=== PATIENT | female | born 1960 | race Caucasian/White ===

== ENCOUNTER 2016-04-05 02:15 | Inpatient (IN) | payer OTHER ==
[2016-04-05] VITALS (14 sets, daily range): BP systolic 108–131; BP diastolic 56–77; PULSE 81–109; TEMP 36.4–36.9; O2SAT 91–99; Ht 165.1 cm; Wt 98.2 kg
[~2016-04-05] VITALS: Ht 165.1 cm; Wt 98.2 kg
[2016-04-05] MEDS ORDERED: ALBUT/IPRATROP 3MG/0.5MG NEB 3 ML VIAL ONE (02:18)
--- NOTE | 2016-04-05 02:32 | EMERGENCY ROOM VISIT NOTE ---
History Report prepared by Klaudia: Flor Phan Under the Supervision of: Dr. Jorge Brunner M.D. First contact with patient: 02:17 Stated Complaint: RESPIRATORY DISTRESS History of Present Illness The patient is a 55 year old female who presents to the Emergency Room with complaints of persistent respiratory distress that began prior to arrival. Per EMS the patient was diagnosed with bronchitis recently was started on Azithromycin. EMS reports that the patient was statting 52% prior to arrival. They note that the patient was given three albuterol treatments prior to arrival and has been using a DuoNeb at home. The patient states that her legs have been swelling recently. She denies any history of heart problems. The patient states that she is currently not on any steroids. She notes that she is feeling better after the albuterol treatments and BiPAP. Source of History: patient, EMS Onset: prior to arrival Position: other (global) Quality: other (respiratory distress) Timing: other (persistent) Modifying Factors (Relieving): other (albuterol, BiPAP) Review of Systems See HPI for pertinent positives & negatives. A total of 10 systems reviewed and were otherwise negative. Past Medical & Surgical Medical Problems: (1) Bronchitis Family History No pertinent family history stated. Social History Marital Status: Occupation Status: unemployed Current/Historical Medications Scheduled Amlodipine (Norvasc), 10 MG PO DAILY Atorvastatin (Lipitor), 20 MG PO QPM Hydrochlorothiazide (Hctz), 25 MG PO DAILY Losartan Potassium (Cozaar), 50 MG PO DAILY Metoprolol Tartrate (Lopressor) (Lopressor), 50 MG PO BID Montelukast Sodium (Montelukast Sodium), 10 MG PO QPM Rivaroxaban (Xarelto), 20 MG PO DAILY Scheduled PRN Albuterol Hfa (Ventolin Hfa), 2 PUFFS INH Q4H PRN for Shortness of Breath Ipratropium-Albuterol (Duoneb), 3 ML INH Q4H PRN for SOB/Wheezing Allergies Coded Allergies: Adhesives (Verified Allergy, Intermediate, ERRYTHEMA, 04/05/16) Aspirin (Verified Allergy, Unknown, 04/05/16) Quinolones (Verified Allergy, Unknown, 04/05/16) Tetracyclines (Verified Allergy, Unknown, 04/05/16) Sulfamethoxazole w/Trimethoprim (Verified Adverse Reaction, Intermediate, N/V, 04/05/16) Uncoded Allergies: CIPRO, DOXYCYCLINE,ASPIRIN,IBUPROFEN (Allergy, Unknown, 05/07/02) DOXYCYCLINE HYCLATE (Generic Allergy) (Allergy, Unknown, Y, 04/05/16) IBUPROFEN (Generic Allergy) (Allergy, Unknown, Y, 04/05/16) STERIODS (Adverse Reaction, Intermediate, EDEMA, 04/05/16) Physical Exam Vital Signs Date Time Temp Pulse Resp B/P Pulse Ox O2 Delivery O2 Flow Rate FiO2 04/05/16 02:49 100 99 100 04/05/16 02:47 100 34 99 BiPAP/CPAP 100 04/05/16 02:30 104 24 142/84 100 CPAP 04/05/16 02:25 97 Humidified Oxygen 04/05/16 02:20 111 04/05/16 02:15 36.9 111 24 166/110 93 Humidified Oxygen 6.0 Physical Exam GENERAL: Patient is acutely ill appearing and in moderate distress. HEENT: No acute trauma, normocephalic atraumatic, mucous membranes moist, no nasal congestion, no scleral icterus. NECK: No stridor, no adenopathy, no meningismus, trachea is midline. LUNGS: Dyspneic, tachypneic, tight lung sounds. Diffuse crackles and wheezes throughout. HEART: Tachycardic rate and regular rhythm. No murmurs, rubs, gallops appreciated. ABDOMEN: Soft, nontender, bowel sounds positive, no masses appreciated, no peritonitis. BACK: No midline tenderness, no CVA tenderness EXTREMITIES: Normal motion all extremities, no cyanosis, no edema. NEUROLOGIC: Alert and oriented, no acute motor or sensory deficits, no focal weakness, cranial nerves grossly intact. SKIN: No rash, no jaundice, no diaphoresis. Medical Decision & Procedures ER Provider Diagnostic Interpretation: X ray results are stated below per my interpretation: Chest: 1 view: No infiltrate, no effusion, normal cardiac border. Laboratory Results 04/05/16 02:06 Red Blood Count 4.32, Mean Corpuscular Volume 93.5, Mean Corpuscular Hemoglobin 31.9, Mean Corpuscular Hemoglobin Concent 34.2, Mean Platelet Volume 10.4, Neutrophils (%) (Auto) 54.7, Lymphocytes (%) (Auto) 23.7, Monocytes (%) (Auto) 10.1, Eosinophils (%) (Auto) 10.7, Basophils (%) (Auto) 0.6, Neutrophils # (Auto ) 6.97, Lymphocytes # (Auto) 3.03, Monocytes # (Auto) 1.29, Eosinophils # (Auto ) 1.37, Basophils # (Auto) 0.08 04/05/16 02:06 Test 04/05/16 02:06 04/05/16 02:37 04/05/16 02:40 White Blood Count 12.77 K/uL (4.8-10.8) Red Blood Count 4.32 M/uL (4.2-5.4) Hemoglobin 13.8 g/dL (12.0-16.0) Hematocrit 40.4 % (37-47) Mean Corpuscular Volume 93.5 fL (80-100) Mean Corpuscular Hemoglobin 31.9 pg (25-34) Mean Corpuscular Hemoglobin Concent 34.2 g/dl (32-36) Platelet Count 312 K/uL (130-400) Mean Platelet Volume 10.4 fL (7.4-10.4) Neutrophils (%) (Auto) 54.7 % Lymphocytes (%) (Auto) 23.7 % Monocytes (%) (Auto) 10.1 % Eosinophils (%) (Auto) 10.7 % Basophils (%) (Auto) 0.6 % Neutrophils # (Auto) 6.97 K/uL (1.4-6.5) Lymphocytes # (Auto) 3.03 K/uL (1.2-3.4) Monocytes # (Auto) 1.29 K/uL (0.11-0.59) Eosinophils # (Auto) 1.37 K/uL (0-0.5) Basophils # (Auto) 0.08 K/uL (0-0.2) RDW Standard Deviation 46.4 fL (36.4-46.3) RDW Coefficient of Variation 13.5 % (11.5-14.5) Immature Granulocyte % (Auto) 0.2 % Immature Granulocyte # (Auto) 0.03 K/uL (0.00-0.02) Anion Gap 10.0 mmol/L (3-11) Est Creatinine Clear Calc Drug Dose 112.1 ml/min Estimated GFR () 113.8 Estimated GFR (Non- 98.2 BUN/Creatinine Ratio 26.1 (10-20) Calcium Level 8.4 mg/dl (8.5-10.1) Magnesium Level 1.9 mg/dl (1.8-2.4) Total Creatine Kinase 272 U/L (26-192) Creatine Kinase MB 2.9 ng/ml (0.5-3.6) Creatine Kinase MB Ratio 1.1 (0-3.0) Troponin I < 0.015 ng/ml (0-0.045) Bedside Lactic Acid Venous 0.73 mmol/L (0.90-1.70) Arterial Blood pH 7.40 (7.35-7.45) Arterial Blood Partial Pressure CO2 45 mmHg (35-46) Arterial Blood Partial Pressure O2 215 mm/Hg (80-95) Arterial Blood HCO3 27 mmol/L (19-24) Arterial Blood Oxygen Saturation 99.6 % (90-95) Arterial Blood Base Excess 2.1 mEq/L (-9-1.8) Arterial Blood Gas Delivery 100% BIPAP Deni Test POS (POS) Laboratory results as reviewed by me. Medications Administered Medications (Trade) Dose Ordered Sig/Alexa Route Start Time Stop Time Status Last Admin Dose Admin Albuterol/ Ipratropium (Duoneb) 6 ml STK-MED ONCE .ROUTE 04/05/16 02:18 04/05/16 02:19 DC 04/05/16 02:47 6 ML Piperacillin Sod/ Tazobactam Sod (Zosyn Iv) 4.5 gm NOW STAT IV 04/05/16 02:51 04/05/16 02:53 DC 04/05/16 03:00 4.5 GM Vancomycin HCl (Vancomycin 1gm/ 270ml Nss) 1 gm STK-MED ONCE IV 04/05/16 03:50 04/05/16 03:51 DC 04/05/16 03:55 1 GM Methylprednisolone Sodium Succinate (Solu-Medrol IV) 40 mg STK-MED ONCE .ROUTE 04/05/16 03:50 04/05/16 03:51 DC 04/05/16 04:07 40 MG ECG Indication: SOB/dyspnea Rate (beats per minute): 111 Rhythm: sinus tachycardia Findings: no acute ischemic change, no ectopy ED Course 0214: The patient was evaluated in room B1. A complete history and physical exam was performed. 0218: Ordered DuoNeb 6 ml .route. 0225: I reevaluated the patient and her breathing is becoming more labored. She is being placed on BiPAP. 025: Ordered Zosyn IV 4.5 gm IV. 031: I reevaluated the patient at this time and she is doing well and breathing comfortably. I discussed the exam findings with her and I discussed the treatment plan. She verbalized complete understanding and agreement. She is going to be evaluated for further treatment. 320: I discussed the patient's case with ABBEY Pryor. He is going to evaluate the patient for further treatment. Medical Decision Differential: Infectious, Reactive Airway Disease, Pneumonia, Pneumothorax, COPD , CHF, ACS, Pulmonary Embolism, MSK, GI, Dissection, amongst other etiologies entertained. 55 yr old female with chronically poor lungs and previous hospitalizations, though none in last few months. Admits that she started with bronchitis 2 weeks ago which she was on Zpack for with minimal improvement. Over last 24 hours worsening SHOB and wheezing. Using nebs with minimal improvement. EMS arrived this morning to find her severely SHOB with need for CPAP and neds due to diffuse wheezing and hypoxia (~50% O2 on RA). She is much improved here though with brief trial on NRB she developed worsening dyspnea and tachypnea, thus started on BiPAP with great result. She is breathing comfortably and wheezing/crackles improving on continuous neb. She has some edema in legs which she notes is chronic and CXR without evidence of overt CHF. This is similar to her previous COPD exacerbations and given so I feel that CT PE is not indicated at this time. Extensive allergies, including she states to steroids thus have held off on ordering them. Furthermore, she is allergic to many ABX, thus given Zosyn for lung coverage as no recent hospitalizations. She is stable, breathing comfortably on BiPAP. She will be brought in for further work-up and evaluation. Consults Time Called: [phone] Consulting Physician: ABBEY Pryor Returned Call: [phone] I discussed the patient's case with ABBEY Pryor. He is going to evaluate the patient for further treatment. Impression Primary Impression: Acute respiratory failure Additional Impression: Acute bronchitis Critical Care I have personally spent greater than 35 minutes of critical care time in the direct management of this patient. This was a life/limb threatening event. This includes time spent evaluating patient, direct bedside care, chart review, placing orders, interpretation of diagnostic studies, discussion with consultants, patient, and family members, as well as other required patient management activities. This 35 minutes is in excess of all separately billable procedures. Scribe Attestation The scribe's documentation has been prepared under my direction and personally reviewed by me in its entirety. I confirm that the note above accurately reflects all work, treatment, procedures, and medical decision making performed by me. Departure Information Dispostion Home / Self-Care Referrals No Doctor, Assigned (PCP) Problem Qualifiers Primary Impression: Acute respiratory failure Respiratory failure complication: hypoxia Qualified Codes: J96.01 - Acute respiratory failure with hypoxia Additional Impression: Acute bronchitis Bronchitis organism: unspecified organism Qualified Codes: J20.9 - Acute bronchitis, unspecified
[2016-04-05 02:33] LABS: BASO % 0.6 %; BASO ABS # 0.08 K/uL (0-0.2); COMPLETE YES; EOS % 10.7 %; HEMATOCRIT 40.4 % (37-47); IG% 0.2 %; LYMPH % 23.7 %; LYMPH ABS # 3.03 K/uL (1.2-3.4); MEAN CELL VOLUME 93.5 fL (80-100); MEAN CORPUSCULAR HEMOGLOBIN 31.9 pg (25-34); MEAN CORPUSCULAR HGB CONC 34.2 g/dl (32-36); MEAN PLATELET VOLUME 10.4 fL (7.4-10.4); MONO % 10.1 %; NEUT % 54.7 %; PLATELET COUNT 312 K/uL (130-400); RED BLOOD COUNT 4.32 M/uL (4.2-5.4); WHITE BLOOD COUNT 12.77 K/uL (4.8-10.8)
[2016-04-05] MEDS ORDERED: PIPERACILLIN/TAZOBACTAM 4.5 GM/100ML D5W IV STA (02:51)
[2016-04-05 02:57] LABS: ALLEN TEST POS (POS); ARTERIAL BLD GAS O2 SATURATION 99.6 % (90-95); ARTERIAL BLOOD GAS BASE EXCESS 2.1 mEq/L (-9-1.8); ARTERIAL BLOOD GAS HCO3 27 mmol/L (19-24); ARTERIAL BLOOD GAS PO2 215 mm/Hg (80-95); O2 ADMINISTRATION 100% BIPAP
[2016-04-05 02:58] LABS: BLOOD UREA NITROGEN 18 mg/dl (7-18); BUN/CREATININE RATIO 26.1 (10-20); CALCIUM 8.4 mg/dl (8.5-10.1); CARBON DIOXIDE 27 mmol/L (21-32); CHLORIDE 106 mmol/L (98-107); GLUCOSE 135 mg/dl (70-99); MAGNESIUM 1.9 mg/dl (1.8-2.4); POTASSIUM 3.3 mmol/L (3.5-5.1); SODIUM 143 mmol/L (136-145)
[2016-04-05] MEDS ORDERED: METO50TA16 PO (03:01)
[2016-04-05] MEDS ORDERED: HYDR25TA4 PO (03:02)
[2016-04-05 03:03] LABS: CKMB/CK RATIO 1.1 (0-3.0)
[2016-04-05] MEDS ORDERED: ATOR-22 PO (03:03)
[2016-04-05] MEDS ORDERED: AMLO-114 PO (03:04)
[2016-04-05] MEDS ORDERED: RIVA1TAB4 PO (03:04)
[2016-04-05] MEDS ORDERED: IPRASOL4 INH (03:07)
[2016-04-05] MEDS ORDERED: LOSA50TA6 PO (03:08)
[2016-04-05] MEDS ORDERED: MONT1TAB5 PO (03:09)
[2016-04-05] MEDS ORDERED: VNTHFA/IN INH (03:10)
[2016-04-05] MEDS ORDERED: ACETAMINOPHEN 325 MG TAB PO PRN (03:45)
[2016-04-05] MEDS ORDERED: VANCOMYCIN INJ 1,000 MG in SODIUM CHLORIDE 0.9% 250ML 250 ML IV STA (03:45)
[2016-04-05] MEDS ORDERED: ZOLPIDEM TARTRATE 5 MG TAB PO PRN (03:45)
[2016-04-05] MEDS ORDERED: ONDANSETRON INJ 2 MG/ML 2 ML VIAL IV PRN (03:45)
[2016-04-05] MEDS ORDERED: VANCOMYCIN 1GM/270ML NSS IV ONE (03:50)
--- NOTE | 2016-04-05 04:05 | History and Physical ---
History & Physical Date & Time of Service: Apr 05, 2016 at 03:52 Chief Complaint: Respiratory Distress Primary Care Physician: Jorge Mcallister D.O. History of Present Illness Source: patient The patient is a 55-year-old female who presents to the emergency department with worsening respiratory distress that began prior to arrival. She was recently diagnosed with bronchitis and started on azithromycin. EMS reports that her oxygen saturation was 52% on room air. She has been using duonebs at home, and was given 3 albuterol treatments en route to the hospital. The patient had previously lived in this area, and moved to [place] for 16 years, and then moved back to this area 6 months ago. Since she's returned, she's had recurrent illness, but was relatively disease-free while in [place]. She has never had allergy testing performed. She has had no sick contacts that she is aware of and has not had any recent travel. Past Medical/Surgical History Medical Problems: (1) Bronchitis Status: Resolved Social History Smoking Status: Current Every Day Smoker Smokeless Tobacco Use: No Alcohol Use: none Drug Use: none Marital Status: Occupational Status: unemployed Multi-Drug Resistant Organisms History of MDRO: No Allergies Coded Allergies: Adhesives (Verified Allergy, Intermediate, ERRYTHEMA, 04/05/16) Aspirin (Verified Allergy, Unknown, 04/05/16) Quinolones (Verified Allergy, Unknown, 04/05/16) Tetracyclines (Verified Allergy, Unknown, 04/05/16) Sulfamethoxazole w/Trimethoprim (Verified Adverse Reaction, Intermediate, N/V, 04/05/16) Uncoded Allergies: CIPRO, DOXYCYCLINE,ASPIRIN,IBUPROFEN (Allergy, Unknown, 05/07/02) DOXYCYCLINE HYCLATE (Generic Allergy) (Allergy, Unknown, Y, 04/05/16) IBUPROFEN (Generic Allergy) (Allergy, Unknown, Y, 04/05/16) STERIODS (Adverse Reaction, Intermediate, EDEMA, 04/05/16) Home Medications Scheduled Amlodipine (Norvasc), 10 MG PO DAILY Atorvastatin (Lipitor), 20 MG PO QPM Hydrochlorothiazide (Hctz), 25 MG PO DAILY Losartan Potassium (Cozaar), 50 MG PO DAILY Metoprolol Tartrate (Lopressor) (Lopressor), 50 MG PO BID Montelukast Sodium (Montelukast Sodium), 10 MG PO QPM Rivaroxaban (Xarelto), 20 MG PO DAILY Scheduled PRN Albuterol Hfa (Ventolin Hfa), 2 PUFFS INH Q4H PRN for Shortness of Breath Ipratropium-Albuterol (Duoneb), 3 ML INH Q4H PRN for SOB/Wheezing Review of Systems The patient denies chest pain, palpitations, vision change, hearing change, sore throat, fevers, chills, sweats, weight change, fatigue, nausea, vomiting, abdominal pain, pelvic pain, blood in urine or stool, dysuria, urinary frequency or urgency, lightheadedness, dizziness, headache, memory loss, rash, abnormal bruising or bleeding, imbalance, focal or generalized weakness, numbness or tingling in arms or legs, arthralgias or myalgias, back or neck pain , or night sweats. The review of systems is otherwise negative other than for that already noted above, and at least 10 systems have been reviewed. Physical Exam Vital Signs Date Time Temp Pulse Resp B/P Pulse Ox O2 Delivery O2 Flow Rate FiO2 04/05/16 02:49 100 99 100 04/05/16 02:47 100 34 99 BiPAP/CPAP 100 04/05/16 02:30 104 24 142/84 100 CPAP 04/05/16 02:25 97 Humidified Oxygen 04/05/16 02:20 111 04/05/16 02:15 36.9 111 24 166/110 93 Humidified Oxygen 6.0 The patient is awake, well-developed and adequately nourished, alert and oriented 3, normocephalic and atraumatic, sitting upright in bed and in moderate respiratory distress improved on BiPAP. HEENT--PERRL, EOMI, mucous membranes moist, and oropharynx normal. Neck--supple, no JVD or bruits, thyroid normal, trachea midline, no adenopathy. Heart--normal S1 and S2, no extra beats, no murmurs, rubs or gallops. Lungs--diffuse wheezing and rhonchi bilaterally. Moderate respiratory distress , no accessory muscle use. Abdomen--normal bowel sounds and soft, nontender and nondistended, no hernias or masses, no organomegaly. Extremities--no cyanosis, clubbing or edema. There are good distal pulses b/l. Dermatologic--normal skin turgor, normal color, warm and dry, no abnormal lymph nodes, no rash. Neurologic--cranial nerves II through XII grossly intact. Rheumatologic--normal range of motion, nontender, muscles and joints. Psychiatric--normal affect. Diagnostics Laboratory Results Results Past 24 Hours Test 04/05/16 02:06 04/05/16 02:37 04/05/16 02:40 Range/Units White Blood Count 12.77 4.8-10.8 K/uL Red Blood Count 4.32 4.2-5.4 M/uL Hemoglobin 13.8 12.0-16.0 g/dL Hematocrit 40.4 37-47 % Mean Corpuscular Volume 93.5 80-100 fL Mean Corpuscular Hemoglobin 31.9 25-34 pg Mean Corpuscular Hemoglobin Concent 34.2 32-36 g/dl Platelet Count 312 130-400 K/uL Mean Platelet Volume 10.4 7.4-10.4 fL Neutrophils (%) (Auto) 54.7 % Lymphocytes (%) (Auto) 23.7 % Monocytes (%) (Auto) 10.1 % Eosinophils (%) (Auto) 10.7 % Basophils (%) (Auto) 0.6 % Neutrophils # (Auto) 6.97 1.4-6.5 K/uL Lymphocytes # (Auto) 3.03 1.2-3.4 K/uL Monocytes # (Auto) 1.29 0.11-0.59 K/uL Eosinophils # (Auto) 1.37 0-0.5 K/uL Basophils # (Auto) 0.08 0-0.2 K/uL RDW Standard Deviation 46.4 36.4-46.3 fL RDW Coefficient of Variation 13.5 11.5-14.5 % Immature Granulocyte % (Auto) 0.2 % Immature Granulocyte # (Auto) 0.03 0.00-0.02 K/uL Sodium Level 143 136-145 mmol/L Potassium Level 3.3 3.5-5.1 mmol/L Chloride Level 106 98-107 mmol/L Carbon Dioxide Level 27 21-32 mmol/L Anion Gap 10.0 3-11 mmol/L Blood Urea Nitrogen 18 7-18 mg/dl Creatinine 0.70 0.60-1.20 mg/dl Est Creatinine Clear Calc Drug Dose 112.1 ml/min Estimated GFR () 113.8 Estimated GFR (Non- 98.2 BUN/Creatinine Ratio 26.1 10-20 Random Glucose 135 70-99 mg/dl Calcium Level 8.4 8.5-10.1 mg/dl Magnesium Level 1.9 1.8-2.4 mg/dl Total Creatine Kinase 272 26-192 U/L Creatine Kinase MB 2.9 0.5-3.6 ng/ml Creatine Kinase MB Ratio 1.1 0-3.0 Troponin I < 0.015 0-0.045 ng/ml Bedside Lactic Acid Venous 0.73 0.90-1.70 mmol/L Arterial Blood pH 7.40 7.35-7.45 Arterial Blood Partial Pressure CO2 45 35-46 mmHg Arterial Blood Partial Pressure O2 215 80-95 mm/Hg Arterial Blood HCO3 27 19-24 mmol/L Arterial Blood Oxygen Saturation 99.6 90-95 % Arterial Blood Base Excess 2.1 -9-1.8 mEq/L Arterial Blood Gas Delivery 100% BIPAP Deni Test POS POS Microbiology Results 04/05/16 Blood Culture, Received Pending 04/05/16 Blood Culture, Received Pending Impression Assessment and Plan Acute respiratory failure secondary to acute bronchitis--we'll continue patient on BiPAP started in the emergency department. She'll be admitted to the telemetry unit for close oxygen monitoring. Continue Zosyn started in the ED at 3.375 mg IV every 8 hours, as vancomycin IV per renal dosing, Xopenex with Atrovent nebulizers to use every 6 hours while awake and every 2 hours when necessary, Solu-Medrol 40 mg IV every 6 hours, and guaifenesin extended release 600 mg by mouth twice a day. Will start patient on cetirizine 10 mg by mouth daily, continue montelukast 10 mg by mouth every afternoon, and recommend allergy testing. Hypertension--continue amlodipine 10 mg by mouth daily, losartan potassium 50 mg by mouth daily, metoprolol tartrate 50 mg by mouth twice a day, and hold HCTZ 25 mg by mouth daily. Due to her severe lung disease, she may benefit from stopping metoprolol tartrate and amlodipine, and instead being placed on Cardizem CD twice a day. Hypercholesterolemia--continue atorvastatin 20 mg by mouth every afternoon. Hypokalemia--hold HCTZ. Chronic anticoagulation--continue Xarelto 20 mg by mouth daily. Level of Care Telemetry Advanced Directives Existing Advance Directive: No Existing Living Will: No Existing Power of Ground Surveillance Systems Operator: No Resuscitation Status FULL RESUSCITATION VTE Prophylaxis VTE Risk Assessment Done? Y/N: Yes Risk Level: Moderate Given or contraindicated: Other Anticoagulation (Xarelto) Social Service Consult None Apply
[2016-04-05] MEDS ORDERED: CETIRIZINE HCL 10 MG TAB PO STA (04:28)
[2016-04-05] MEDS ORDERED: LEVALBUTEROL 1.25MG/0.5ML NEB INH PRN (04:30)
[2016-04-05] MEDS ORDERED: IPRATROPIUM BROMIDE NEB SOLN 0.02% 2.5 ML VIAL INH PRN (04:30)
[2016-04-05] MEDS ORDERED: VANCOMYCIN CONSULT ACTIVE PRN (04:45)
[2016-04-05] MEDS ORDERED: PIPERACILL/TAZOBAC CONSULT ACTIVE PRN (04:45)
[2016-04-05] MEDS ORDERED: VANCOMYCIN INJ 1,600 MG in SODIUM CHLORIDE 0.9% 500ML 500 ML IV SCH (05:30)
[2016-04-05] MEDS: LEVALBUTEROL 1.25MG/0.5ML NEB INH SCH ×3 (07:10→19:31)
[2016-04-05] MEDS: IPRATROPIUM BROMIDE NEB SOLN 0.02% 2.5 ML VIAL INH SCH ×3 (07:11→19:31)
--- NOTE | 2016-04-05 07:29 | DIAGNOSTIC IMAGING REPORT ---
SINGLE VIEW CHEST CLINICAL HISTORY: Dyspnea. FINDINGS: An AP, portable, upright chest radiograph is obtained. No prior studies are available for comparison at the time of dictation. The examination is degraded by portable technique, motion artifact, and patient rotation. The heart is top normal for projection. A stent projects over the superior mediastinum. There is mild atherosclerotic calcification of the thoracic and. The pulmonary vasculature appears congested. No focal airspace consolidation or large pleural effusion is identified. No pneumothorax is seen. The skeletal structures appear osteopenic. The bony thorax is grossly intact. IMPRESSION: 1. The pulmonary vasculature appears congested. Correlate clinically for evidence of mild congestive failure. 2. No airspace consolidation or large pleural effusion is identified. Electronically signed by: Erickson Braun M.D. 04/05/2016 7:28 AM Dictated Date/Time: 04/05/2016 7:27 AM
[2016-04-05] MEDS ORDERED: PIPERACILL/TAZOBAC IV 3.375 GM in DEXTROSE 5% 100ML 100 ML IV SCH (08:00)
[2016-04-05] MEDS: GUAIFENESIN 600 MG TABCR PO SCH ×2 (08:07→20:08)
[2016-04-05] MEDS: AMLODIPINE BESYLATE 5 MG TAB PO SCH (08:07)
[2016-04-05] MEDS: METOPROLOL TARTRATE 50 MG TAB PO SCH ×2 (08:08→20:08)
[2016-04-05] MEDS: LOSARTAN POTASSIUM 50 MG TAB PO SCH (08:08)
[2016-04-05] MEDS ORDERED: LEVALBUTEROL/IPRATROPIUM NEB INH SCH (09:00)
[2016-04-05] MEDS ORDERED: CETIRIZINE HCL 10 MG TAB PO SCH (09:00)
[2016-04-05] MEDS: PIPERACILL/TAZOBAC IV 4.5 GM in DEXTROSE 5% 100ML IV SCH ×2 (09:02→18:08)
--- NOTE | 2016-04-05 09:31 | Pharmacy Progress Note ---
Pharmacy Antibiotic Consult Date of Service: Apr 05, 2016. Pharmacy Dosing Scope Pharmacy is consulted to initiate IV Vancomycin/Zosyn dosing therapy, order appropriate labs and adjust drug dose/frequency. Subjective The patient is a 55 year old female admitted on Apr 05, 2016 at 03:41. Objective Height (Feet): 5 Height (Inches): 5.00 Weight (Kilograms): 109.000 Lab Results (24hrs): Laboratory Tests Test 04/05/16 02:06 BUN/Creatinine Ratio 26.1 Blood Urea Nitrogen 18 mg/dl Creatinine 0.70 mg/dl White Blood Count 12.77 K/uL Red Blood Count 4.32 M/uL Hemoglobin 13.8 g/dL Hematocrit 40.4 % Mean Corpuscular Volume 93.5 fL Mean Corpuscular Hemoglobin 31.9 pg Mean Corpuscular Hemoglobin Concent 34.2 g/dl Platelet Count 312 K/uL Mean Platelet Volume 10.4 fL Neutrophils (%) (Auto) 54.7 % Lymphocytes (%) (Auto) 23.7 % Monocytes (%) (Auto) 10.1 % Eosinophils (%) (Auto) 10.7 % Basophils (%) (Auto) 0.6 % Neutrophils # (Auto) 6.97 K/uL Lymphocytes # (Auto) 3.03 K/uL Monocytes # (Auto) 1.29 K/uL Eosinophils # (Auto) 1.37 K/uL Basophils # (Auto) 0.08 K/uL Micro Results: Item Value Date Time Blood Culture Received 04/05/16 0240 Blood Pending Blood Culture Received 04/05/16 0230 Blood Pending Recent Pertinent Medications Item Value Date Time Vancomycin HCl 1 gm 04/05/16 0350 (Vancomycin 1gm/ .STK-MED ONCE/IV 04/05/16 0355 270ml Nss) Vancomycin HCl 532 ml @ 200 mls/hr 04/05/16 0530 1600 mg/Sodium TODAY@0530/IV 04/05/16 0616 Chloride Vancomycin HCl 277 ml @ 125 mls/hr 04/05/16 1200 1350 mg/Sodium Q8H/IV Chloride Item Value Date Time Piperacillin Sod/ 4.5 gm 04/05/16 0251 Tazobactam Sod NOW STAT/IV 04/05/16 0300 (Zosyn Iv) Piperacillin Sod/ 120 ml @ 30 mls/hr 04/05/16 0800 Tazobactam Sod Q8H/IV 04/05/16 0902 4.5 gm/Dextrose Assessment & Plan Vancomycin * Loading dose: Vancomycin 2600mg IV admin'd in 2 separate doses (25mg/kg) * Maintenance dose: Vancomycin 1350mg IV q8h (12.5mg/kg --adjusted for BMI ~ 40 ) * P'kinetic estimates: k ~ 0.0974hr-1 & t1/2 ~ 7.1hr * Goal trough level: 15-20mcg/mL * Trough level ordered for: 04/06/16 1200 Pharmacy will continue to follow and will adjust dose/frequency as necessary. Thank you
[2016-04-05] MEDS ORDERED: METHYLPREDNISOLONE IV 40 MG in SYRINGE 0 ML IV SCH (10:00)
[2016-04-05] MEDS ORDERED: VANCOMYCIN INJ 1,350 MG in SODIUM CHLORIDE 0.9% 250ML 250 ML IV SCH (12:00)
[2016-04-05 12:36] LABS: HEMATOCRIT 38.2 % (37-47); MEAN CELL VOLUME 92.7 fL (80-100); MEAN CORPUSCULAR HEMOGLOBIN 31.1 pg (25-34); MEAN CORPUSCULAR HGB CONC 33.5 g/dl (32-36); MEAN PLATELET VOLUME 10.2 fL (7.4-10.4); PLATELET COUNT 278 K/uL (130-400); RED BLOOD COUNT 4.12 M/uL (4.2-5.4); WHITE BLOOD COUNT 8.02 K/uL (4.8-10.8)
[2016-04-05 13:16] LABS: CALCIUM 8.6 mg/dl (8.5-10.1); CREATININE 0.99 mg/dl (0.60-1.20); POTASSIUM 3.7 mmol/L (3.5-5.1)
[2016-04-05 13:20] LABS: INFLUENZA A PCR Neg for Influ A (NEG); INFLUENZA B PCR Neg for Influ B (NEG)
--- NOTE | 2016-04-05 14:09 | Progress Note ---
Subjective Date of Service: Apr 05, 2016. Subjective Pt evaluation today including: conversation w/ patient, physical exam, lab review, review of studies, review of inpatient medication list Pain: no pain PO Intake: adequate, typically only eats dinner Voiding: no voiding problems breathing much better since admission, minimal cough, not productive no chest pain, no fever chills, no vomiting or diarrhea Problem List Medical Problems: (1) Acute bronchitis Status: Acute (2) Acute respiratory failure Status: Acute Review of Systems Constitutional: + fatigue, + weakness Respiratory: + cough, + dyspnea at rest, + dyspnea on exertion, + shortness of breath, No hemoptysis, No sputum, No wheezing All Other Systems: Reviewed and Negative Medications Current Inpatient Medications Medications (Trade) Dose Ordered Sig/Alexa Route Start Time Stop Time Status Last Admin Dose Admin Acetaminophen (Tylenol Tab) 650 mg Q4H PRN PO 04/05/16 03:45 05/05/16 03:44 Zolpidem Tartrate (Ambien Tab) 5 mg HSZ PRN PO 04/05/16 03:45 05/05/16 03:44 Amlodipine Besylate (Norvasc Tab) 10 mg DAILY PO 04/05/16 09:00 05/05/16 08:59 04/05/16 08:07 10 MG Atorvastatin Calcium (Lipitor Tab) 20 mg QPM PO 04/05/16 21:00 05/05/16 20:59 Losartan Potassium (coZAAR TAB) 50 mg DAILY PO 04/05/16 09:00 05/05/16 08:59 04/05/16 08:08 50 MG Metoprolol Tartrate (Lopressor Tab) 50 mg BID PO 04/05/16 09:00 05/05/16 08:59 04/05/16 08:08 50 MG Montelukast Sodium (Singulair Tab) 10 mg QPM PO 04/05/16 21:00 05/05/16 20:59 Rivaroxaban (Xarelto Tab) 20 mg QDD PO 04/05/16 16:45 05/05/16 16:44 Ondansetron HCl (Zofran Inj) 4 mg Q6H PRN IV 04/05/16 03:45 05/05/16 03:44 Guaifenesin (Mucinex Contr Rel Tab) 600 mg BID PO 04/05/16 09:00 05/05/16 08:59 04/05/16 08:07 600 MG Ipratropium [place] (Atrovent 0.02% 0.5MG/2.5ML Neb) 0.5 mg Q6R INH 04/05/16 09:00 05/05/16 08:59 04/05/16 07:11 0.5 MG Levalbuterol (Xopenex 1.25MG/ 0.5ML Neb) 1.25 mg Q6R INH 04/05/16 09:00 05/05/16 08:59 04/05/16 07:10 1.25 MG Ipratropium [place] (Atrovent 0.02% 0.5MG/2.5ML Neb) 0.5 mg Q2H PRN INH 04/05/16 04:30 05/05/16 04:29 04/05/16 05:00 0.5 MG Levalbuterol (Xopenex 1.25MG/ 0.5ML Neb) 1.25 mg Q2H PRN INH 04/05/16 04:30 05/05/16 04:29 04/05/16 05:00 1.25 MG Piperacillin Sod/ Tazobactam Sod 1 ea 1 ea UD PRN N/A 04/05/16 04:45 05/05/16 04:44 Piperacillin Sod/ Tazobactam Sod 4.5 gm/Dextrose 120 ml @ 30 mls/hr Q8H IV 04/05/16 08:00 04/12/16 07:59 04/05/16 09:02 30 MLS/HR Methylprednisolone Sodium Succinate/ Syringe (Solu-Medrol IV/ Syringe) 0.8 ml @ 1.5 mls/min Q12 IV 04/05/16 21:00 05/05/16 20:59 Objective Vital Signs Date Time Temp Pulse Resp B/P Pulse Ox O2 Delivery O2 Flow Rate FiO2 04/05/16 12:20 36.9 85 20 116/56 93 Nasal Cannula 6.0 04/05/16 12:00 Nasal Cannula 6.0 04/05/16 08:00 98 Nasal Cannula 6.0 04/05/16 07:29 36.5 103 20 110/68 98 Nasal Cannula 6.0 04/05/16 07:11 100 20 93 Nasal Cannula 6.0 04/05/16 05:19 36.4 104 28 108/74 92 Nasal Cannula 6.0 04/05/16 05:00 109 26 93 Nasal Cannula 6.0 04/05/16 04:28 109/59 04/05/16 04:15 106 91 04/05/16 03:59 91/68 04/05/16 03:45 94 98 04/05/16 03:28 101/71 04/05/16 03:15 102 99 04/05/16 02:59 94/77 04/05/16 02:49 100 99 100 04/05/16 02:47 100 34 99 BiPAP/CPAP 100 04/05/16 02:45 102 99 04/05/16 02:30 104 24 142/84 100 CPAP 04/05/16 02:29 142/84 04/05/16 02:25 97 Humidified Oxygen 04/05/16 02:21 138/90 04/05/16 02:20 111 04/05/16 02:15 36.9 111 24 166/110 93 Humidified Oxygen 6.0 04/05/16 02:15 166/110 Physical Exam General Appearance: no apparent distress, + obese Eyes: normal inspection, EOMI, sclerae normal ENT: normal ENT inspection, hearing grossly normal, pharynx normal Neck: no adenopathy, no JVD, trachea midline, + pertinent finding (large neck) Respiratory/Chest: chest non-tender, no respiratory distress, no accessory muscle use, + decreased breath sounds, + rhonchi (bilaterally, more pronounced posteriorly, lower lobes) Cardiovascular: regular rate, rhythm, no edema, no gallop, no JVD, no murmur Abdomen: normal bowel sounds, non tender, soft, no organomegaly Extremities: normal range of motion, non-tender, normal inspection, no pedal edema, no calf tenderness Neurologic/Psychiatric: account liaison II-XII nml as tested, no motor/sensory deficits, alert, normal mood/affect, oriented x 3 Skin: normal color, warm/dry, no rash Lymphatic: no adenopathy Laboratory Results Last 24 Hours Test 04/05/16 02:06 04/05/16 02:37 04/05/16 02:40 04/05/16 11:14 White Blood Count 12.77 K/uL Red Blood Count 4.32 M/uL Hemoglobin 13.8 g/dL Hematocrit 40.4 % Mean Corpuscular Volume 93.5 fL Mean Corpuscular Hemoglobin 31.9 pg Mean Corpuscular Hemoglobin Concent 34.2 g/dl Platelet Count 312 K/uL Mean Platelet Volume 10.4 fL Neutrophils (%) (Auto) 54.7 % Lymphocytes (%) (Auto) 23.7 % Monocytes (%) (Auto) 10.1 % Eosinophils (%) (Auto) 10.7 % Basophils (%) (Auto) 0.6 % Neutrophils # (Auto) 6.97 K/uL Lymphocytes # (Auto) 3.03 K/uL Monocytes # (Auto) 1.29 K/uL Eosinophils # (Auto) 1.37 K/uL Basophils # (Auto) 0.08 K/uL RDW Standard Deviation 46.4 fL RDW Coefficient of Variation 13.5 % Immature Granulocyte % (Auto) 0.2 % Immature Granulocyte # (Auto) 0.03 K/uL Sodium Level 143 mmol/L Potassium Level 3.3 mmol/L Chloride Level 106 mmol/L Carbon Dioxide Level 27 mmol/L Anion Gap 10.0 mmol/L Blood Urea Nitrogen 18 mg/dl Creatinine 0.70 mg/dl Est Creatinine Clear Calc Drug Dose 112.1 ml/min Estimated GFR () 113.8 Estimated GFR (Non- 98.2 BUN/Creatinine Ratio 26.1 Random Glucose 135 mg/dl Calcium Level 8.4 mg/dl Magnesium Level 1.9 mg/dl Total Creatine Kinase 272 U/L Creatine Kinase MB 2.9 ng/ml Creatine Kinase MB Ratio 1.1 Troponin I < 0.015 ng/ml Bedside Lactic Acid Venous 0.73 mmol/L Arterial Blood pH 7.40 Arterial Blood Partial Pressure CO2 45 mmHg Arterial Blood Partial Pressure O2 215 mm/Hg Arterial Blood HCO3 27 mmol/L Arterial Blood Oxygen Saturation 99.6 % Arterial Blood Base Excess 2.1 mEq/L Arterial Blood Gas Delivery 100% BIPAP Deni Test POS Influenza Type A (RT-PCR) Neg for Influ A Influenza Type B (RT-PCR) Neg for Influ B Test 04/05/16 12:25 White Blood Count 8.02 K/uL Red Blood Count 4.12 M/uL Hemoglobin 12.8 g/dL Hematocrit 38.2 % Mean Corpuscular Volume 92.7 fL Mean Corpuscular Hemoglobin 31.1 pg Mean Corpuscular Hemoglobin Concent 33.5 g/dl RDW Standard Deviation 45.5 fL RDW Coefficient of Variation 13.5 % Platelet Count 278 K/uL Mean Platelet Volume 10.2 fL Sodium Level 141 mmol/L Potassium Level 3.7 mmol/L Chloride Level 106 mmol/L Carbon Dioxide Level 23 mmol/L Anion Gap 12.0 mmol/L Blood Urea Nitrogen 13 mg/dl Creatinine 0.99 mg/dl Est Creatinine Clear Calc Drug Dose 79.8 ml/min Estimated GFR () 74.9 Estimated GFR (Non- 64.6 BUN/Creatinine Ratio 13.0 Random Glucose 193 mg/dl Calcium Level 8.6 mg/dl Assessment and Plan 55 yo female with h/o COPD, presented with acute exacerbation, initially required BIPAP but titrated to nasal canula quickly - COPD exacerbation: continue Solumedrol 50mg q12, nebulizers, Montelukast there could be an allergy component not using any maintenance inhalers prior to admission (Advair, Spiriva etc) would likely benefit from pulmonary referral outpatient since she is now living here - Acute hypoxic respiratory failure: improving, still on 6L NC but goal for her would be saturations 88-90% try to wean off oxygen will check echo to look for undiagnosed pulmonary HTN as contributing to hypoxia (obese, COPD, possible SAV) - Possible SAV: may benefit from sleep study as outpatient - HTN: Norvasc, Losartan, metoprolol and HCTZ - Hyperlipidemia: Lipitor - Chronic anticoagulation: on Xarelto, will discuss further, is this for VTE? Plan: transfer to medical floor, check echo to look for pulmonary HTN, it is severe then may consider pulmonary consult inpatient, further work up etc Chronic anticoagulation--continue Xarelto 20 mg by mouth daily.
--- NOTE | 2016-04-05 17:21 | ECHOCARDIOGRAM REPORT ---
*NOTICE TO RECEIVING DEMOCRAT AGENCY This information is strictly Confidential and protected under [place] law. [place] law prohibits you from making any further disclosure of this information unless further disclosure is expressly permitted by the written consent of the person to whom it pertains or is authorized by law. A general authorization for the release of medical or other information is not sufficient for this purpose. Hospital accepts no responsibility if the information is made available to any other person, INCLUDING THE PATIENT. Interpretation Summary * Name: PHILLIP BOURGEOIS Study Date: 04/05/2016 03:05 PM BP: 116/56 mmHg * Patient Location: [id number]\E417\S\1 HR: 84 * : 1960 (M/d/yyyy) Gender: Female Height: 65 in * Age: 55 yrs Ethnicity: CA Weight: 240 lb * Ordering Physician: Duarte Graff * Referring Physician: Self, Referred * Performed By: Flor Saravia RDCS * * Reason For Study: PULMONARY HYPERTENSION * BSA: 2.1 m2 * History: PULMONARY HYPERTENSION * -- Conclusions -- * Left ventricular systolic function is normal. * No regional wall motion abnormalities noted. * Ejection Fraction = 65-70%. * There is mild concentric left ventricular hypertrophy. * No significant valvular pathology. Procedure Details * A complete two-dimensional transthoracic echocardiogram was performed (2D, M-mode, Doppler and color flow Doppler). Left Ventricle * The left ventricle is normal in size. * There is mild concentric left ventricular hypertrophy. * Ejection Fraction = 65-70%. * Left ventricular systolic function is normal. * No regional wall motion abnormalities noted. Right Ventricle * The right ventricle is not well visualized. * The right ventricular systolic function is normal as assessed by tricuspid annular plane systolic excursion (TAPSE) (normal >1.5 cm). Atria * The left atrial size is normal. * Right atrial size is normal. * There is no evidence of atrial septal defect, but resolution does not allow assessment for a patent foramen ovale. Mitral Valve * The mitral valve is grossly normal. * There is no mitral valve stenosis. * Significant mitral regurgitation is absent. Tricuspid Valve * The tricuspid valve is not well visualized, but is grossly normal. * Significant tricuspid regurgitation is absent. Aortic Valve * The aortic valve is not well visualized. * The aortic valve opens well. * No hemodynamically significant valvular aortic stenosis. * No aortic regurgitation is present. Pulmonic Valve * The pulmonary valve is not well seen, but the Doppler examination is normal without significant regurgitation or stenosis. Great Vessels * The aortic root is normal size. Pericardium/Pleural * There is no pericardial effusion. MMode 2D Measurements and Calculations IVSd 1.2 cm IVSs 1.5 cm LVIDd 4.2 cm LVIDs 2.6 cm LVPWd 1.3 cm LVPWs 1.6 cm IVS/LVPW 0.95 FS 38.3 % EDV(Teich) 80.3 ml ESV(Teich) 24.9 ml EF(Teich) 68.9 % EDV(cubed) 76.2 ml ESV(cubed) 17.9 ml EF(cubed) 76.5 % % IVS thick 22.7 % % LVPW thick 21.0 % LV mass(C)d 195.8 grams LV mass(C)dI 91.6 grams/m\S\2 LV mass(C)s 139.9 grams LV mass(C)sI 65.5 grams/m\S\2 SV(Teich) 55.4 ml SI(Teich) 25.9 ml/m\S\2 SV(cubed) 58.3 ml SI(cubed) 27.3 ml/m\S\2 Ao root diam 2.6 cm Ao root area 5.4 cm\S\2 LA dimension 3.4 cm LA/Ao 1.3 LVAd ap4 31.0 cm\S\2 LVLd ap4 7.8 cm EDV(MOD-sp4) 100.8 ml EDV(sp4-el) 104.4 ml LVAs ap4 16.2 cm\S\2 LVLs ap4 6.5 cm ESV(MOD-sp4) 35.0 ml ESV(sp4-el) 34.3 ml EF(MOD-sp4) 65.3 % EF(sp4-el) 67.2 % LVAd ap2 25.0 cm\S\2 LVLd ap2 7.3 cm EDV(MOD-sp2) 73.6 ml EDV(sp2-el) 72.3 ml LVAs ap2 12.8 cm\S\2 LVLs ap2 5.8 cm ESV(MOD-sp2) 24.5 ml ESV(sp2-el) 24.2 ml EF(MOD-sp2) 66.7 % EF(sp2-el) 66.5 % LVLd %diff -6.48 % EDV(MOD-bp) 89.2 ml LVLs %diff -13.20 % ESV(MOD-bp) 31.1 ml EF(MOD-bp) 65.2 % SV(MOD-sp4) 65.8 ml SI(MOD-sp4) 30.8 ml/m\S\2 SV(MOD-sp2) 49.1 ml SI(MOD-sp2) 23.0 ml/m\S\2 SV(MOD-bp) 58.1 ml SI(MOD-bp) 27.2 ml/m\S\2 SV(sp4-el) 70.1 ml SI(sp4-el) 32.8 ml/m\S\2 SV(sp2-el) 48.1 ml SI(sp2-el) 22.5 ml/m\S\2 Doppler Measurements and Calculations MV E max gilda 101.9 cm/sec MV A max gilda 89.7 cm/sec MV E/A 1.1 MV dec time 0.25 sec Ao V2 max 191.8 cm/sec Ao max PG 14.7 mmHg Ao max PG (full) 6.6 mmHg LV V1 max PG 8.1 mmHg LV V1 max 142.1 cm/sec
[2016-04-05] MEDS: RIVAROXABAN 10 MG TAB PO SCH (18:40)
[2016-04-05] MEDS: METHYLPREDNISOLONE IV 50 MG in SYRINGE 0 ML IV SCH (20:08)
[2016-04-05] MEDS ORDERED: ATORVASTATIN 20 MG TAB PO SCH (21:00)
[2016-04-05] MEDS ORDERED: MONTELUKAST SOD 10 MG TAB PO SCH (21:00)
[2016-04-06] VITALS (8 sets, daily range): BP systolic 114; BP diastolic 70; PULSE 75–87; TEMP 36.6; O2SAT 90–97
[2016-04-06] MEDS: PIPERACILL/TAZOBAC IV 4.5 GM in DEXTROSE 5% 100ML IV SCH ×3 (00:19→16:00)
[2016-04-06] MEDS: LEVALBUTEROL 1.25MG/0.5ML NEB INH SCH ×3 (01:34→14:32)
[2016-04-06] MEDS: IPRATROPIUM BROMIDE NEB SOLN 0.02% 2.5 ML VIAL INH SCH ×3 (01:34→14:32)
[2016-04-06 06:18] LABS: BASO % 0.1 %; BASO ABS # 0.02 K/uL (0-0.2); COMPLETE YES; HEMATOCRIT 38.2 % (37-47); IG% 0.4 %; LYMPH % 7.4 %; LYMPH ABS # 1.24 K/uL (1.2-3.4); MEAN CELL VOLUME 92.9 fL (80-100); MEAN CORPUSCULAR HEMOGLOBIN 31.1 pg (25-34); MEAN CORPUSCULAR HGB CONC 33.5 g/dl (32-36); MEAN PLATELET VOLUME 10.4 fL (7.4-10.4); MONO % 4.6 %; NEUT % 87.5 %; PLATELET COUNT 289 K/uL (130-400); RED BLOOD COUNT 4.11 M/uL (4.2-5.4); WHITE BLOOD COUNT 16.84 K/uL (4.8-10.8)
[2016-04-06 06:43] LABS: BUN/CREATININE RATIO 15.2 (10-20); CALCIUM 8.7 mg/dl (8.5-10.1); CREATININE 0.85 mg/dl (0.60-1.20); MAGNESIUM 2.1 mg/dl (1.8-2.4); POTASSIUM 3.7 mmol/L (3.5-5.1)
[2016-04-06] MEDS: METHYLPREDNISOLONE IV 50 MG in SYRINGE 0 ML IV SCH (08:52)
[2016-04-06] MEDS: GUAIFENESIN 600 MG TABCR PO SCH (08:52)
[2016-04-06] MEDS: METOPROLOL TARTRATE 50 MG TAB PO SCH (08:53)
[2016-04-06] MEDS: AMLODIPINE BESYLATE 5 MG TAB PO SCH (09:05)
[2016-04-06] MEDS: LOSARTAN POTASSIUM 50 MG TAB PO SCH (09:05)
[2016-04-06] MEDS ORDERED: VANCOMYCIN TROUGH SCH (11:30)
[2016-04-06] MEDS ORDERED: AMOX875T PO (14:17)
[2016-04-06] MEDS ORDERED: PRED10TA PO (14:17)
--- NOTE | 2016-04-06 14:25 | Discharge Instructions ---
Discharge Instructions Admission Reason for Admission: Acute Bronchitis, Acute Respiratory Failure Discharge Discharge Diagnosis / Problem: COPD exacerbation (resolving), Acute respiratory failure (resolved) Discharge Goals Goal(s): Decrease discomfort, Improve function, Diagnostic testing (recommend pulmonary function testing) Activity Recommendations Activity Limitations: resume your previous activity Lifting Limitations: none Exercise/Sports Limitations: as tolerated Shower/Bathe: no limitations Driving or Machine Use: no limitations . Instructions / Follow-Up Instructions / Follow-Up Medications: - PREDNISONE: starting tomorrow morning, take 40mg (4 tablets) daily x 4 days then decrease to 30mg daily x 2 days, 20mg x 2 days, 10mg x 2 days and stop - AUGMENTIN: take twice a day, can start tonight, 10 tablets total, take until prescription is finished, should be 5 days total - DUONEB: treatment you already have at home for nebulizer, I want you to use four times a day for the next 5 days, you can use up to every 2 hours if you experience some shortness of breath, after 5 days you can return to just using as needed COPD exacerbation: as we discussed, since this is your first hospitalization for COPD exacerbation, could be a good sign that your lungs are not too bad, however, also could indicate that your lung function is getting worse. Strongly recommend a referral to pulmonology as outpatient for them to perform pulmonary function testing and then give recommendations for any maintenance inhalers to prevent further progression of disease. Smoking: STOP SMOKING, this will reduce risk of lung cancer in your later years and will delay further progression of lung disease FOLLOW UP - keep appointment with Dr. Mcallister on - request a referral to [facility] for PFT's and a consultation (Dr. Medel, Dr. Rodriguez, Dr. Ponce) Current Hospital Diet Patient's current hospital diet: Regular Diet Discharge Diet Recommended Diet: Regular Diet Pending Studies Studies pending at discharge: no Medical Emergencies . Who to Call and When: Medical Emergencies: If at any time you feel your situation is an emergency, please call 911 immediately. . Non-Emergent Contact Non-Emergency issues call your: Primary Care Provider Call Non-Emergent contact if: you have a fever, you have any medication questions . . "Provider Documentation" section prepared by Duarte Graff. VTE Core Measure Inpt VTE Proph given/why not?: Other Anticoagulation (Xarelto) [place] Drug Monitoring Program Search Results: no issues identified
--- NOTE | 2016-04-06 16:05 | Discharge Summary ---
Discharge Summary Admission Date: Apr 05, 2016 at 03:41 Discharge Date: Apr 06, 2016 Discharge Disposition: Home Principal Diagnosis: COPD exacerbation Problems/Secondary Diagnoses: Acute hypoxic respiratory failure Tobacco abuse Procedures: none Consultations: none Medication Reconciliation New Medications: Amoxicillin & Pot Clavulanate (Augmentin 875-125 mg) 1 Tab Tab 875 MG PO BID, #10 TAB Prednisone (Prednisone) 10 Mg Tab 40 MG PO UD for 10 Days, #28 TAB Taper: start 04/07, 40mg daily x 4 days then 30mg daily x 2 days, 20mg daily x 2 days, 10mg daily x 2 days then stop Continued Medications: Albuterol Hfa (Ventolin Hfa) 200 Puffs/85126 Mcg Aers 2 PUFFS INH Q4H PRN for Shortness of Breath, #1 INHALER Amlodipine (Norvasc) 10 Mg Tab 10 MG PO DAILY, TAB Atorvastatin (Lipitor) 20 Mg Tab 20 MG PO QPM, TAB Hydrochlorothiazide (Hctz) 25 Mg Tab 25 MG PO DAILY, TAB Ipratropium-Albuterol (Duoneb) 3 Ml Nebu 3 ML INH Q4H PRN for SOB/Wheezing, INHA Losartan Potassium (Cozaar) 50 Mg Tab 50 MG PO DAILY, TAB Metoprolol Tartrate (Lopressor) (Lopressor) 50 Mg Tab 50 MG PO BID, TAB Montelukast Sodium (Montelukast Sodium) 10 Mg Tab 10 MG PO QPM Rivaroxaban (Xarelto) 20 Mg Tab 20 MG PO DAILY, TAB TAKE THIS MED WITH EVENING MEAL. Discharge Exam Patient feeling much better today, titrated off of oxygen this morning. Repeated saturations showed that she does not need oxygen. Ambulating well, mild dyspnea but as to be expected. Cough is more productive today, no fevers or chills, eating well. Long talk about plans for discharge and recommendations for follow up with a primary substance abuse counselor for PFT and further recommendations. Discussed importance of quitting smoking, she refused a nicotine patch, but said that she planned on stopping. Review of Systems: Constitutional: + fatigue, + weakness, No chills, No fever, No problem reported, No sweats, No weight loss Eyes: No diplopia, No discharge, No eye pain, No problem reported, No redness, No worsening of vision ENT: No dental problems, No hearing loss, No nasal symptoms, No problem reported, No sore throat, No tinnitus, No trouble swallowing, No unusual epistaxis Respiratory: + cough, + dyspnea on exertion, + sputum, No dyspnea at rest, No hemoptysis, No shortness of breath, No wheezing Cardiovascular: No PND, No chest pain, No claudication, No edema, No orthopnea, No palpitations, No problem reported Abdomen: No GI bleeding, No constipation, No diarrhea, No nausea, No pain, No problem reported, No vomiting Musculoskeletal: No calf pain, No joint pain, No muscle pain, No problem reported, No swelling Genitourinary - Female: No dysuria, No hematuria, No urinary frequency, No urinary incontinence, No urinary retention, No urinary urgency Neurologic: No balance problems, No memory loss, No numbness/tingling, No paralysis, No problem reported, No vertigo, No weakness Psychiatric: No anhedonism, No anxiety, No depression symptoms, No insomnia , No problem reported, No substance abuse Endocrine: No excessive thirst, No excessive urination, No fatigue, No problem reported Hematologic / Lymphatic: No abnormal bleeding/bruising, No clotting problems , No night sweats, No problem reported, No swollen lymph nodes Integumentary: No bleeding, No color change, No itch, No new/changing skin lesions, No problem reported, No rash Physical Exam: General Appearance: WD/WN, no apparent distress Eyes: normal inspection, EOMI, sclerae normal ENT: normal ENT inspection, hearing grossly normal, pharynx normal Neck: supple, no adenopathy, no JVD, trachea midline Respiratory/Chest: chest non-tender, no respiratory distress, no accessory muscle use, + decreased breath sounds (improved since admission), + wheezing ( bilaterally, minimal, end exhalation) Cardiovascular: regular rate, rhythm, no edema, no gallop, no JVD, no murmur , normal peripheral pulses Abdomen / GI: normal bowel sounds, non tender, soft, no organomegaly Extremities: normal inspection, no calf tenderness, normal capillary refill , no pedal edema, normal range of motion Neurologic/Psychiatric: co founder and chairman II-XII nml as tested, no motor/sensory deficits , alert, normal mood/affect, normal reflexes, oriented x 3 Skin: normal color, warm/dry, no rash Lymphatic: no adenopathy Hospital Course 55 yo female with h/o COPD, presented with acute exacerbation, initially required BIPAP but titrated to nasal canula quickly - COPD exacerbation: resolving quickly d/c home on Prednisone 40mg daily with taper over next 10 days, Augmentin x 5 days, Duonebs QID for 5 days there could be an allergy component, continue Montelukast would likely benefit from pulmonary referral outpatient since she is now living here discussed that PCP could refer for PFT once she is recovered from this exacerbation would give an idea of COPD severity, possible need for any maintenance inhalers etc. - Acute hypoxic respiratory failure: resolved, saturations have been 90-91% all day on room air echocardiogram - normal EF, no evidence of pulmonary HTN - HTN: Norvasc, Losartan, metoprolol and HCTZ - Hyperlipidemia: Lipitor - Chronic anticoagulation: on Xarelto Plan: d/c home on Prednisone, Augmentin, Duonebs (she has a home nebulizer) and follow up with PCP, pulmonology referral once recovered from exacerbation Chronic anticoagulation--continue Xarelto 20 mg by mouth daily. This includes examination of the patient, discharge planning, medication reconciliation, and communication with other providers. Discharge Instructions Please refer to the electronic Patient Visit Report (Discharge Instructions) for additional information. Follow-Up Dr. Mcallister next Additional Copies To Jorge Mcallister D.O.
[2016-04-06] MEDS: RIVAROXABAN 10 MG TAB PO SCH (17:05)
== END 2016-04-06 18:23 | disposition home or self-care (01) | DRG 189 ==
LOC: ENRESERVTM → ENRESERVDT → EDBD 02:15 → C.EDB 02:17 → C.2E 03:41 → C.4E 14:57
PROVIDERS: ADMIT Hospitalist; ATTEND Internal Medicine
DX: J96.01 Acute respiratory failure with hypoxia (principal); J44.1 Chronic obstructive pulmonary disease with (acute) exacerbation; I10 Essential (primary) hypertension; E78.5 Hyperlipidemia, unspecified; F17.210 Nicotine dependence, cigarettes, uncomplicated; E87.6 Hypokalemia; Z79.01 Long term (current) use of anticoagulants; Z79.899 Other long term (current) drug therapy